=== PATIENT | female | born 1995 | race Caucasian/White ===

== ENCOUNTER 2016-12-03 13:42 | Emergency (ER) | payer MEDICAID, OTHER ==
[~2016-12-03 13:42] MED LIST: ACYC-1 PO; LORTA5 PO; PRENTAB72 PO
[2016-12-03] MEDS ORDERED: LACTATED RINGER'S 1000 ML INJ 1,000 ML IV SCH ×2 (14:11→14:31)
[2016-12-03] MEDS ORDERED: ONDANSETRON HCL 4 MG/2 ML VIAL IV ONE (14:15)
[2016-12-03] MEDS ORDERED: PANTOPRAZOLE SODIUM 40 MG VIAL IV PUSH ONE (14:15)
[2016-12-03] MEDS ORDERED: PROCHLORPERAZINE INJ 10 MG/2 ML VIAL IVS ONE (14:15)
[2016-12-03] MEDS ORDERED: LACTATED RINGER'S 1000 ML INJ 500 ML IV ONE (14:30)
--- NOTE | 2016-12-03 14:35 | PD ---
HPI Chief Complaint vomiting, diarrhea Date Seen: Dec 03, 2016 Time Seen: 14:23 Travel History International Travel<30 Days: No Contact w/Intl Traveler<30Days: No History of Present Illness HPI 20 year-old at 20 weeks (uncertain dates, has not yet had imaging) presents with nausea, vomiting, and diarrhea x2 days. [facility] follows with [facility], but has only had one appointment thusfar. Pt works nights at [employer]. She fell asleep yesterday morning and woke up at 10pm when she started having vomiting and diarrhea. She has been unable to keep down food or water and reports subjective fevers/chills and dizziness. Denies sick contacts or sore throat. Has developed sharp R sided/epigastric chest pain that increases with inspiration. Para: 0 : 1 Miscarriage: 0 : 0 History Past Medical History Medical History: Denies Significant Hx Obstetric History Obstetric History 2012, vaginal delivery Past Surgical History Surgical History: No Previous Surgery Family History Family History: Negative Social History Alcohol Use: No Tobacco Use: No Substance Abuse: Yes (Marijuana use several times/week for insomnia) Allergies-Medications (Allergen,Severity, Reaction): Coded Allergies: No Known Allergies (Unverified , 12/03/16) Home Meds Active Scripts Promethazine (Phenergan)25 Mg Tab25 Mg PO Q6H PRN (Nausea/Vomiting) #30 TAB Ref 0 Prov:Khadra Fitzpatrick MD R1 12/03/16 Reported Medications Loperamide-Simethicone (Imodium Multi-Symptom Relief)Unknown Strength TabUnknown Dose 12/03/16 Review of Systems Except as stated in HPI: all other systems reviewed are Neg Physical Exam Narrative GENERAL: Adult gravid female in mild distress secondary to nausea.. SKIN: Warm and dry. HEENT: PERRL. MMM. CV: Borderline tachycardic (98). No murmurs RESP: Lungs CTAB. No wheezing. GI: Soft, non-tender. FHT's: 150s EXTREMITIES: No cyanosis or edema. BACK: Nontender without obvious deformity. No CVA tenderness. NEUROLOGICAL: Motor and sensory grossly within normal limits Data Data Vital Signs Reviewed: Yes Orders Vital Signs (Adult) .ON ADMISSION (12/03/16 14:11) ^ Labor Status (12/03/16 14:11) Urinalysis - C+S If Indicated (12/03/16 14:11) Comprehensive Metabolic Panel (12/03/16 14:11) Lactated Ringer's 1000 Ml Inj (Lr 1000 M (12/03/16 14:11) Prochlorperazine Inj (Compazine Inj) (12/03/16 14:15) Pantoprazole Inj (Protonix Inj) (12/03/16 14:15) Ondansetron Inj (Zofran Inj) (12/03/16 16:00) Lactated Ringer's 1000 Ml Inj (Lr 1000 M (12/03/16 14:31) Lactated Ringer's 1000 Ml Inj (Lr 1000 M (12/03/16 14:30) MDM Medical Record Reviewed: Yes Plan 20y @20 weeks (per pt) who presents with nausea/vomiting/diarrhea x2 days. Symptoms appear consistent with acute gastroenteritis (viral vs bacterial) vs nausea secondary to vs other toxins (Marijuana, alcohol, etc). Maternal vital signs reassuring and consistent with mild dehydration-borderline tachycardia, normotensive, afebrile. FHT reassuring at 150s. Plan for antiemetics, fluids, and reassurance for wellbeing with likely d/c home. 1. Nausea/Vomiting in , Diarrhea -LR 500cc IV bolus + LR 125mL/hr until d/c -CBC, CMP, U/A pending -POC ultrasound to assess wellbeing will be performed -Compazine 10mg IV x1 -Protonix 40mg IV x1 SDW: Dr. Salinas, Dr Danny Gil Diagnosis Diagnosis: Primary Impression: Nausea and vomiting during Additional Impression: Diarrhea Qualified Code: A09 - Diarrhea of presumed infectious origin Disposition: DISCHARGE HOME Condition: Stable Scripts Promethazine (Phenergan)25 Mg Tab25 Mg PO Q6H PRN (Nausea/Vomiting) #30 TAB Ref 0 Prov:Khadra Fitzpatrick MD R1 12/03/16 Khadra Fitzpatrick MD R1 Dec 03, 2016 14:35
[2016-12-03] MEDS ORDERED: IMODTAB (14:51)
[2016-12-03] MEDS ORDERED: PROM25TA5 PO (14:51)
[2016-12-03 15:16] LABS: BLOOD, URINE NEG (NEG); COMMENT (UR) CULT NOT INDICATED; CULTURE IF INDICATED CULT NOT INDICATED; GLUCOSE,URINE NEG (NEG); KETONE, URINE 10 mg/dL (NEG); MUCUS URINE FEW /lpf (OCC); NITRITE,URINE NEG (NEG); PH, URINE 5.5 (5.0-8.5); SQUAMOUS EPITHELIAL CELL URINE 9 /hpf (0-5); URINE COLOR YELLOW (YELLW/STRAW)
--- NOTE | 2016-12-03 15:27 | PD ---
HPI Chief Complaint Nausea vomiting and diarrhea Date Seen: Dec 03, 2016 Travel History International Travel<30 Days: No Contact w/Intl Traveler<30Days: No History of Present Illness HPI Patient is 20-year-old white female at approximately 20 weeks' gestation with poor gestational criteria and care presents with nausea vomiting and diarrhea over the last 24 hours. She denies vaginal bleeding or leakage of amniotic fluid and her baby is moving. [facility] so far but no ultrasounds been done Para: 1 : 2 History Obstetric History Obstetric History One vaginal delivery no history of chronic nausea vomiting Social History Narrative Social History History of marijuana use Alcohol Use: No Tobacco Use: Yes Substance Abuse: Yes Allergies-Medications (Allergen,Severity, Reaction): Coded Allergies: No Known Allergies (Unverified , 12/03/16) Home Meds Active Scripts Promethazine (Phenergan)25 Mg Tab25 Mg PO Q6H PRN (Nausea/Vomiting) #30 TAB Ref 0 Prov:Khadra Fitzpatrick MD R1 12/03/16 Reported Medications Loperamide-Simethicone (Imodium Multi-Symptom Relief)Unknown Strength TabUnknown Dose 12/03/16 Review of Systems General / Constitutional: No: Fever, Weight Gain, Chills, Other Eyes: No: Diploplia, Blurred Vision, Visual changes, Pain, Photophobia HENT: No: Headaches, Vertigo, Lightheadedness Cardiovascular: No: Irregular Rhythm, Chest Pain or Discomfort, Palpitations, Tachycardia, Syncope, Varicosities, Edema, Cyanosis Respiratory: No: Cough, Short of Breath, Other Gastrointestinal: Nausea, Vomiting, Diarrhea Genitourinary: No: Decreased Urinary Output, Oliguria Musculoskeletal: No: Limited ROM, Weakness, Cramping, Edema, Pain Skin: No Rash, No Itching, No Dryness, No Lumps, No Change in Pigmentation, No Change in Nails, No Alopecia, No Lesions Neurologic: No: Weakness, Dizziness, Syncope, Focal Abnormalities, Coordination Problem, Headache, Slurred Speech, Seizures Psychiatric: No: Depression, Suicidal Ideations, Homicidal Ideation Endocrine: No: Heat Intolerance, Cold Intolerance, Polydipsia, Polyuria, Other Physical Exam Narrative GENERAL: Well-nourished, well-developed patient. SKIN: Warm and dry. HEAD: Normocephalic and atraumatic. EYES: No scleral icterus. No injection or drainage. ENT: No nasal drainage noted. Mucous membranes pink. Airway patent. NECK: Supple, trachea midline. No JVD. CARDIOVASCULAR: Regular rate and rhythm without murmurs, gallops, or rubs. RESPIRATORY: Breath sounds equal bilaterally. No accessory muscle use. BREASTS: Bilateral exam showed no masses , no retractions, no nipple discharge. ABDOMEN/GI: Abdomen soft, non-tender, bowel sounds present, no rebound, no guarding Gravid to [20-] weeks size Fundal Height: [-At umbilicus] GENITOURINARY: FHT's: 144 EXTREMITIES: No cyanosis or edema. BACK: Nontender without obvious deformity. No CVA tenderness. NEUROLOGICAL: Awake and alert. Motor and sensory grossly within normal limits. Five out of 5 muscle strength in all muscle groups. Normal speech. Data Data Orders Vital Signs (Adult) .ON ADMISSION (12/03/16 14:11) ^ Labor Status (12/03/16 14:11) Urinalysis - C+S If Indicated (12/03/16 14:11) Comprehensive Metabolic Panel (12/03/16 14:11) Lactated Ringer's 1000 Ml Inj (Lr 1000 M (12/03/16 14:11) Prochlorperazine Inj (Compazine Inj) (12/03/16 14:15) Pantoprazole Inj (Protonix Inj) (12/03/16 14:15) Ondansetron Inj (Zofran Inj) (12/03/16 16:00) Lactated Ringer's 1000 Ml Inj (Lr 1000 M (12/03/16 14:31) Lactated Ringer's 1000 Ml Inj (Lr 1000 M (12/03/16 14:30) Ob Poc Ultrasound (12/03/16 ) Promethazine Supp (Phenergan Supp) (12/03/16 16:00) Labs Ultrasound done at the bedside on itself shows 19 week 3 day of female fetus in vertex presentation adequate amniotic fluid volume posterior grade 0 placenta normal basic anatomy scan EDC by this ultrasound 04/26/17 Laboratory Tests Test 12/03/16 14:00 Urine Color YELLOW Urine Turbidity HAZY Urine pH 5.5 Urine Specific [place] 1.027 Urine Protein TRACE Urine Glucose (UA) NEG Urine Ketones 10 Urine Occult Blood NEG Urine Nitrite NEG Urine Bilirubin NEG Urine Urobilinogen LESS THAN 2.0 Urine Leukocyte Esterase TRACE Urine RBC 1 Urine WBC 2 Urine Squamous Epithelial 9 Cells Urine Mucus FEW Microscopic Urinalysis Comment CULT NOT INDICATED MDM Interpretation(s) This patient is a 19-20 week intrauterine with nausea and vomiting and diarrhea her nausea vomiting treated here with IV fluid IV Zofran and Compazine and Protonix should be discharged with a prescription for Phenergan by mouth and suppository. OB treated with [id number] Imodium A-D. She' ll continue by mouth hydration at home as well as bedrest Tylenol when necessary and adequate fluid intake will also [facility] Diagnosis Diagnosis: Primary Impression: Nausea and vomiting during Additional Impression: Diarrhea Qualified Code: A09 - Diarrhea of presumed infectious origin Disposition: 01 DISCHARGE HOME Condition: Stable Scripts Promethazine (Phenergan)25 Mg Tab25 Mg PO Q6H PRN (Nausea/Vomiting) #30 TAB Ref 0 Prov:Khadra Fitzpatrick MD R1 12/03/16 Gasper Salinas II, MD Dec 03, 2016 15:27
[2016-12-03] MEDS ORDERED: PROMETHAZINE HCL 25 MG SUPP RECTAL PRN (16:00)
[2016-12-03] MEDS ORDERED: ONDANSETRON INJ 8 MG in DEXTROSE 5% IN WATER INJ 50 ML IV ONE ×2 (16:00)
[2016-12-03 16:50] LABS: ALKALINE PHOSPHATASE 88 U/L (45-117); ALT (GPT) 26 U/L (10-53); ANION GAP 10 MEQ/L (5-15); AST (GOT) 23 U/L (15-37); BICARBONATE 25.3 MEQ/L (21.0-32.0); BLOOD UREA NITROGEN 8 MG/DL (7-18); CHLORIDE 101 MEQ/L (98-107); GLOMERULAR FILTRATION RATE 114 ML/MIN (>89); POTASSIUM 3.8 MEQ/L (3.5-5.1); SODIUM (NA) 136 MEQ/L (136-145)
== END 2016-12-03 17:00 | disposition home or self-care (01) ==
LOC: HOBED 13:42
DX: O21.9 Vomiting of pregnancy, unspecified (principal); A09 Infectious gastroenteritis and colitis, unspecified; Z3A.20 20 weeks gestation of pregnancy
CPT/HCPCS: 76815; 80053; 81001; 96360; 99284; J7120